=== PATIENT | female | born 1960 | race Caucasian/White ===

== ENCOUNTER 2020-01-24 10:30 | Emergency (ER) | payer BC, SELFPAY ==
--- NOTE | 2020-01-24 10:37 | ED.URI ---
HPI - URI/Sore Throat General Chief Complaint: Upper Respiratory Infection Stated Complaint: cough/sore throat Time Seen by Provider: 01/24/20 10:37 Source: patient and RN notes reviewed History of Present Illness HPI Narrative: Patient is a 59-year-old female who presents the urgent care with complaints of bilateral otalgia, sore throat, nonproductive cough, low-grade fever. Patient states she has been using Lizzie-[place] [id number] with some mild relief of the cough. States that symptoms started last . No other acute complaints. Denies any shortness of breath or wheezing. No acute distress noted. Patient aware of the plan of care. Related Data Home Medications Medication Instructions Recorded Confirmed atorvastatin 40 mg PO HS 10/29/19 01/24/20 conjugated estrogens [Premarin] 1 applic VAGINAL 2XW 10/29/19 01/24/20 meloxicam 7.5 mg PO DAILY 10/29/19 01/24/20 triamterene-hydrochlorothiazid 1 cap PO USEASDIRECTD 10/29/19 01/24/20 Allergies Allergy/AdvReac Type Severity Reaction Status Date / Time No Known Drug Allergies Allergy Verified 10/31/19 06:33 Review of Systems Review of Systems: Narrative: CONSTITUTIONAL: Reports of low-grade fevers and fatigue EYES: Denies visual changes, redness, or discharge. ENT: Reports of sore throat, ear pressure, postnasal drainage CARDIOVASCULAR: Denies chest pain, palpitations, or edema. RESPIRATORY: Reports of cough without dyspnea or wheezing GASTROINTESTINAL: Denies abdominal pain, nausea, vomiting, or diarrhea. GENITOURINARY: Denies dysuria or hematuria. SKIN: Denies rash or itching. MUSCULOSKELETAL: Denies back pain, joint pain, or myalgia. NEUROLOGIC: Denies headache, numbness, or weakness. All other systems reviewed are negative, except as documented in HPI. [facility] Past Medical History Medical History (Updated 01/24/20 @ 10:55 by MARITZA Crawford) Hyperlipidemia Social History Social History Gender identity (if verbalized by the patient): Female Comments At the time of my signature, I reviewed and agree with the nursing past medical, surgical, social, and family history. There is no relevant family history pertinent to the patient complaint. Exam Narrative: Exam Narrative: GENERAL: This is a well-nourished, well-developed patient, appears slightly fatigued HEAD: normocephalic, atraumatic. EYES: PERRL. Sclera clear/white. Vision is grossly intact. EARS: External ears normal, auditory canals clear and without drainage, TMs normal without perforation. Hearing grossly intact. NOSE: External nose normal with no obvious nasal discharge, mild bilateral erythemic nares with clear rhinorrhea. THROAT: Mucous membranes moist, posterior pharynx clear. Moderate postnasal drainage NECK: Neck supple, non-tender without lymphadenopathy CARDIOVASCULAR: Regular rate and rhythm without murmurs, gallops, or rubs. RESPIRATORY: Clear to auscultation. Breath sounds equal bilaterally. No wheezes, rales, or rhonchi. SKIN: warm, intact with no suspicious lesions or rash, good texture and turgor. NEURO: awake, alert, and oriented to person, place and time. There were no obvious focal neurologic abnormalities. EXTREMITIES: No clubbing, cyanosis, or edema. Course Vital Signs Vital signs: Vital Signs Temperature 99.4 F 01/24/20 10:44 Pulse Rate 113 H 01/24/20 10:44 Respiratory Rate 01/24/20 10:44 Blood Pressure 134/86 01/24/20 10:44 Pulse Oximetry 97 01/24/20 10:44 Temperature 99.4 F 01/24/20 10:44 Pulse Rate 113 H 01/24/20 10:44 Respiratory Rate 20 01/24/20 10:44 Blood Pressure 134/86 01/24/20 10:44 Pulse Oximetry 97 01/24/20 10:44 Reviewed MDM - URI/Sore Throat MDM Narrative Medical decision making narrative: Reviewed lab results with the patient. She is aware that influenza swab was positive for influenza A. Strep swab was negative. Educated her on strep culture we will
[2020-01-24 10:44] VITALS: BP 134/86; PULSE 113; RESP 20; TEMP 37.4; O2SAT 97
== END 2020-01-24 10:59 | disposition home or self-care (01) ==
PROVIDERS: Emergency Provider Nurse Practitioner Family
DX: J11.1 Influenza due to unidentified influenza virus with other respiratory manifestations (principal); E78.5 Hyperlipidemia, unspecified
CPT/HCPCS: 87081; 87804; 87880; 99213; G0463

== ENCOUNTER 2020-10-05 13:00 | Outpatient (RCR) | payer BC, SELFPAY ==
--- NOTE | 2020-09-14 10:23 | PTOPEVAL ---
PHYSICAL THERAPY EVALUATION AND PLAN OF CARE 09-14-2020 Thank you for referring Veronica [facility] to [facility], for the diagnosis of chronic L shoulder pain. She is scheduled to be seen for therapy? 2 x/week for 3 weeks. Please review, sign, date and return this plan of care CASSIDY. I agree with and certify that the following plan of care is medically necessary. Referring Physician Date Attending Provider: Gely Lee MD *PT Outpatient Evaluation Document 09/14/20 09:05 JUAN CARLOS (Rec: 09/14/20 10:22 JUAN CARLOS [id number]) Outpatient Past Medical History Past Medical History Source of Past Medical History Recalled from Previous Visit, Confirmed with Patient/Family Neurological History Hx Neurological Disorders No Significant History Cardiovascular History Hx Hypercholesterolemia Yes: meds control Respiratory History Hx Respiratory Disorders No Significant History Gastrointestinal History Hx Gastroesophageal Reflux Disease Yes: OCCAS REFLUX Genitourinary History Hx Genitourinary Disorders No Significant History Musculoskeletal History Hx Arthritis Yes: B thumb arthritis Hx Other Musculoskeletal Disorders Yes: chronic L shoulder pain; Hematological History Hx Hematological Disorders No Significant History Endocrine History Hx Endocrine Disorders No Significant History HEENT History Hx Meniere's Syndrome Yes Integumentary History Hx Skin Disorders No Significant History Reproductive History Hx Section Yes: x2 Hx Hysterectomy Yes Psychosocial History Hx Psychiatric Disorders No Significant History Pain History History of Any Previous or Ongoing No Significant History Instance of Pain Anesthesia History Hx Post-Op Nausea/Vomiting Yes Evaluation Information Problem Diagnosis chronic L shoulder pain Onset Nov 2019 Subjective Information gradual increase in pain, Query Text:As Reported By Patient/ started waking up with pain in Family shoulder; no trauma or injury to shoulder; Diagnostic Tests X-Rays For This Problem Yes: per pt, negative MRI For This Problem No Other Tests For This Problem No Previous Treatments Previous Treatments For This Problem no PT for shoulder Prior Level of Function Activity Level (Last 3 Months) 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
--- NOTE | 2020-10-05 13:44 | PTOPEVAL ---
PHYSICAL THERAPY RE-EVALUATION 10-05-2020 Refer to the clinical summary below for comparison of her status to the initial evaluation. Mrs. Snyder is to call you for a follow up appointment to discuss/assess her shoulder. If PT is to continue, please give her a new script to continue PT treatment for her shoulder. Thank you for referring Veronica Snyder to [facility].? Please review, sign, date and return this revaluation report CASSIDY. I agree with and certify that the following plan of care is medically necessary. Referring Physician Date Attending Provider: Gely Lee MD *PT Outpatient Re-Evaluation Document 10/05/20 13:05 JUAN CARLOS (Rec: 10/05/20 13:41 JUAN CARLOS [id number]) Subjective Information Leilani German reports: having issues Query Text:As Reported By Patient/ with sleeping, awaken 2-3 x/ Family night due to pain and cannot get comfortable with shoulder to sleep; not able to reach to back to hook/unhook bra; feel like shoulder is a little stronger and moving more, but still painful down arm and sleeping problems. called her dr and left a message to set up appointment for follow up. Pain Assessment Timing of Pain Assessment Timing of Pain Assessment Assessment Pain Scale Pain Scale Used Numeric (1 - 10) Self Report Pain Assessment Left Shoulder(s) Reported Pain Level 4 Pain Frequency Acute Other Pain Description lateral humerus and anterior GH joint Lowest Pain Intensity 4 Greatest Pain Intensity 7 Pain Aggravating Factors Exercise/Activity Other Pain Aggravating Factors cannot get comfortable for sleeping and awaken from sleep due pain;end day Pain Behaviors Anxious,Grimacing,Guarding Pain Score Pain Score 4: Self Report Interventions Used Interventions Used By Clinicians Exercise Pain Relief Interventions Used By Heat,Inactivity/Rest, Patient Medication Other Alleviating Interventions aleve, self massager for neck and upper back; Upper Extremity Range of Motion General Upper Extremity Range of Motion Gross Upper Extremity Range of Motion active L shoulder in standing: Comments flexion and abduction 155' without pain; ER- reach to back of head without an increase in pain; IR- reach behind back, palm to waist- increase pain Upper Extrem
--- NOTE | 2020-11-25 09:03 | PCPTNOTE ---
PHYSICAL THERAPY DISCHARGE 11-25-2020 Attending Provider: Gely Lee MD Patient:Veronica Snyder Date of :1960 Mrs. Snyder has not returned for any further treatments since the reevaluation on 10/05/2020, therefore she will be discharged at this time. Refer to the reevaluation for her status at the last session. Thank you for referring this patient to [facility]. Please review, sign, date and return this discharge summary CASSIDY. I have been updated about the patient's current status and I agree with discharge from the above service at this time. Referring Physician Date
== END 2020-11-25 11:56 | disposition home or self-care (01) ==
LOC: ANHPT 13:00
PROVIDERS: PCP Internal Medicine; Visit Provider Internal Medicine
DX: M25.512 Pain in left shoulder (principal); S46.212D Strain of muscle, fascia and tendon of other parts of biceps, left arm, subsequent encounter; G89.29 Other chronic pain
CPT/HCPCS: 97014; 97110; 97140; 97161; G0283

== ENCOUNTER 2025-02-04 00:26 | Day surgery (SDC) | payer BC, SELFPAY ==
[2024-10-28 10:27] VITALS: BMI 24.5
--- OUTSIDE RECORDS SUMMARY | 2025-02-04 00:29 | XMS_ITS | Encounter Summary ---
Author Organization [facility] Address [address] [place] [address] Care Team Providers Care Container Filler Name Role Phone Unavailable Primary Care Provider Unavailabl e Encounter Details Date Type Department Care Team (Late st Contact Info) Description 08/06/2018 Lab Requisition [facility] Care DermPath Lab [address] [facility] [address] Tahmina Stone MD [address] [facility] [address] [place] [address] Social History Tobacco Use Types Packs/Day Years Used Date Smoking Tobacco: Never Assessed Sex and Gender Information Value Date Recorded Sex Assigned at Not on file Gender Identity Not on file Sexual Orientation Not on file documented as of this encounter Plan of Treatment Not on file documented as of this encounter Procedures Procedure Name Priority Date/Time Associated Diagnosis Comments DERMATOPATH TECHNICAL REPORT Routine 08/05/2018 12:00 AM CDT documented in this encounter Results * DERMATOPATH TECHNICAL REPORT (08/05/2018 12:00 AM CDT) Case Report Dermatopathology Report Case: [id number] Authorizing Provider: Tahmina Stone MD Collected: 08/05/2018 12:00 AM Pathologist: Amanda Saldivar MD Received: 08/06/2018 06:43 AM Specimen: Skin, right nasal sidewall 8 1:06 PM CDT DERMATOPATHOLOGY LABORATORY Addendum 1 At the request of the diagnosing physician, the technical component for MART-1/Melan A was performed by [facility] Dermatopathology Laboratory. 8 1:06 PM CDT DERMATOPATHOLOGY LABORATORY Addendum electronically signed by Amanda Saldivar MD on 08/08/2018 at 1:06 PM Clinical History Nevus vs BCC. Growing. Check margins. 8 1:06 PM CDT DERMATOPATHOLOGY LABORATORY Gross Description Specimen A: Received is one formalin filled container labeled with the patient's name and designated right nasal sidewall. The specimen consists of a shave measuring [id number]. The margin is inked green. Jar 0. [facility] Dermatopathology Laboratory performed the technical component only. 8 1:06 PM CDT DERMATOPATHOLOGY LABORATORY Embedded Images 1:06 PM CDT DERMATOPATHOLOGY LABORATORY DISCLAIMER An external and internal positive and negative controls are appropriate for the histochemical, immunohistochemical and immunofluorescence stain(s) in this case (if any), except where stated explicitly. The performance characteristics of the stain(s) cited in this report were developed and its performance characteristic determined by the Dermatopathology Laboratory at [facility]. These tests need not be, and therefore are not, approved by the [place] Food and Drug Administration. The tests are used for clinical purposes. 8 1:06 PM T DERMATOPATHOLOGY LABORATORY Pathology/Cytolog y TISSUE SPECIMEN FROM SKIN / Unknown 08/05/2018 08/06/2018 6:43 AM CDT Tahmina Stone MD LAB - PATHOLOGY/CYT OLOGY ORDERABLES DERMATOPATHOLOGY LABORATORY [facility] - Department of Dermatology [address] [place] [address] 5th Floor Lab [address] [phone] documented in this encounter Visit Diagnoses Not on filedocumented in this encounter
--- OUTSIDE RECORDS SUMMARY | 2025-02-04 00:29 | XMS_ITS | Referral Summary ---
Author Organization [facility] Address [address] [place] [address] Care Team Providers Care Rn Clinical Research Name Role Phone Gely Lee MD Primary Care Provider Allergies No known active allergies Medications Lactobacillus acidophilus 10 billion cell capsule Rx: Probiotic Capsule Active fluticasone propionate (FLONASE) 50 mcg/actuation nasal spray Administer 1 spray into each nostril daily Active coenzyme Q10 10 mg capsule Take 1 capsule (10 mg total) by mouth daily Active magnesium gluconate 200 mg tabletIndication s:hypomagnesemia Take 2 tablets (400 mg total) by mouth daily Active vitamins F3-P0-Z0-B12-pro tease 2.5 mg-2.5 mg- 5 mg-100 mcg tablet Take 1 tablet by mouth daily Active vit D3-vit J-zrfcngbjf-trty [phone] wzyu-clz-qf-mg tablet Take 1 tablet by mouth daily Active multivitamin-Ca- iron-minerals 18-0.4 mg tablet Take 1 tablet by mouth daily Active zinc gluconate 100 mg tablet Take 1 tablet by mouth daily Active triamterene-hydr oCHLOROthiazide 37.5-25 mg per tablet/capsule Take 1 tablet/capsule by mouth daily 90 capsule 1 4 Active atorvastatin (LIPITOR) 40 mg tablet TAKE 1 TABLET BY MOUTH EVERY DAY 90 tablet 4 4 Active meloxicam (MOBIC) 15 mg tablet TAKE 1 TABLET (15 MG TOTAL) BY MOUTH DAILY. 100 tablet 1 4 Active Premarin vaginal creamIndications :Vaginal atrophy INSERT 2G PER VAGINA- TWICE WEEKLY 30 g 6 4 Active Active Problems Problem Noted Date Diagnosed Date Tear of left supraspinatus tendon 10/24/2024 Left shoulder pain 10/24/2024 s/p left shoulder diagnostic arthroscopy with biceps tenotomy and debridement on 05/30/2021 06/14/2021 Vestibular migraine 05/18/2021 Rotator cuff impingement syndrome of left should er 11/09/2020 Hyperlipidemia 01/28/2020 Menopausal symptoms 03/01/2018 Gastroesophageal reflux disease without esophagi tis 11/27/2017 Meniere's disease 11/27/2017 Osteoarthritis of thumb 11/27/2017 Dysfunction of eustachian tube 09/02/2014 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 11/23/2010 Resolved Problems Problem Noted Date Diagnosed Date Resolved Date Vestibular migraine 02/10/2021 02/09/20 22 Excessive cerumen in ear canal 10/26/2016 02/08/2022 Sinusitis 02/16/2014 02/08/2022 Facial pain 02/16/2014 02/08/2022 Impacted cerumen 11/23/2010 02/08/2022 Immunizations Immunization Administration Dates Next Due Influenza, Quadrivalent, Spl it, Preservative Free, Intramuscular 08/12/2020 Influenza, Trivalent, Split, Preservative Free, Intradermal 11/29/2012 Influenza, Unspecified 02/21/2023(Deferr ed: Patient Refused),08/19/2019(Deferred: Patient Refused),08/19/2018(Deferred: Patient Refused) Tdap 02/26/2024,02/07/2013 ZOSTER Recombinant 12/18/2020,11/04/2020, 020 Social History Tobacco Use Types Packs/Day Years Used Date Smoking Tobacco: Never Smokeless Tobacco: Never Tobacco Cessation:Counseling Given: Not Answered Alcohol Use Standard Drinks/Week Comments Yes 6 (1 standard drink = 0.6 oz pur e alcohol) Usually have wine with dinner AUDIT-C Answer Date Recorded Q1: How often do you have a drink containing alcohol? 4 or more times a week 05/18/2021 Q2: How many drinks containi ng alcohol do you have on a typical day when you are drinking? 1 or 2 Q3: How often do you have si x or more drinks on one occasion? Never 05/18/2021 PHQ-2 Answer Date Recorded PHQ-2 Total Score (If total score is 3 or more points, staff should administer the PHQ-9) 0 02/26/2024 Comments No Sex and Gender Information Value Date Recorded Sex Assigned at Not on file Legal Sex Female 12:20 AM 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 Gender Identity Female 12/12/2018 9:11 AM 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 Sexual Orientation Straight 08/15/2019 8: 29 AM CDT Last Filed Vital Signs Vital Sign Reading Time Taken Comments Blood Pressure 122/70 06/03/2024 9:08 AM CDT Pulse 95 06/03/2024 9:08 AM CDT Temperature 37 C (98.6 F) 06/03/2024 9:08 AM CDT Respiratory Rate 18 06/03/2024 9:08 AM CDT Oxygen Saturation 97% 06/03/2024 9:08 AM CDT Inhaled Oxygen Concentration - - Weight 59 kg (130 lb) 10/24/2024 9:37 AM 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 Height 154.9 cm (5' 1 ) 10/24/2024 9:37 AM 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 Body Mass Index 24.56 10/24/2024 9:37 AM 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 Plan of Treatment Not on file Procedures Procedure Name Priority Date/Time Associated Diagnosis Comments SCREENING MAMMOGRAM BILATERAL W JEFF Schedule Routine, Read Routine (OP Routine) 07/31/2024 8:50 AM CDT Encounter for screening mammogram for malignant neoplasm of breast THINPREP PAP WITH HPV Routine 04/14/2021 2:09 PM CDT Well woman exam COLONOSCOPY Routine 10/31/2019 from Last 3 Months or Most Recently Relevant to Health Maintenance Results * Screening Mammogram Bilateral W Jeff (07/31/2024 8:50 AM CDT) Anatomical Region Laterality Modality Breast Bilateral Mammography Impressions 07/31/2024 9:23 AM CDT BI-RADS ATLAS category (overall): 1 - Negative There is no mammographic evidence of malignancy. A 1 year screening mammogram is recommended. The patient has been or will be contacted. We recommend annual screening mammography for women at average risk of breast cancer beginning at age 40, based on guidelines of the [employer] [employer] (ACR Practice Parameter for the Performance of Screening and Diagnostic Mammography) and [place] [employer]. For women with and elevated risk of breast cancer, please refer to the ACR Practice Parameter for specific screening recommendations. The patient will be entered into a reminder system with a target due date of 1 year for her next screening exam. Narrative 07/31/2024 9:23 AM CDT Screening Mammogram Bilateral W Jeff: 07/31/24 The study was acquired using full field digital technology and interpreted from soft copy. 2D digital mammographic views, as well as 3D digital tomosynthesis were performed in the CC and MLO projections. CLINICAL: Encounter for screening mammogram for malignant neoplasm of breast. No relevant medical history has been documented for this patient. History of breast cancer in Neg Hx. COMPARISONS: 07/26/2023 Screening Mammogram Bilateral W Jeff 07/19/2022 Screening Mammogram Bilateral W Jeff 07/18/2021 Screening Mammogram Bilateral W Jeff 05/25/2020 Screening Mammogram Bilateral W Jeff 04/11/2019 Screening Mammogram Bilateral W Jeff BREAST TISSUE: The breasts are almost entirely fatty. FINDINGS: There is no new suspicious finding in either breast on mammogram. Saeed Paz MD IMG MAMMO PROCEDURES Fi nal Result * ThinPrep Pap with HPV (04/14/2021 2:09 PM CDT) Pap test 04/14/2021 2:09 PM CDT 04/15/2021 10:23 AM CDT Narrative 04/20/2021 12:57 PM CDT [facility] Department of Pathology [address] [place] [id number] Final Report with Addendum Patient Name: VERONICA SNYDER Address: [address] [place] [address] Gender: F : 1960 (Age: 61) Service: Laboratory Location: Lab [facility] #: [id number] Patient Type: Ref Lab Taken: 04/14/2021 Received: 04/15/2021 Accessioned:: 04/19/2021 Reported: 04/20/2021 Physician(s): Saeed Paz M.D. [facility] Diagnosis: Source of Specimen: Screening ThinPrep Imaged Pap w/HPV Specimen Adequacy: - Specimen satisfactory for interpretation; indeterminate endocervical component due to marked atrophy General Category: - Negative for intraepithelial lesion or malignancy DENZEL Torres(ASCP) Report Electronically Reviewed and Signed Out By DENZEL Torres(ASCP) 04/20/2021 12:57:28 Addenda: HPV Test Interpretation NEGATIVE for types 16, 18, 31, 33, 35, 39, 45, 51, 52, 56, 58, 59, 66 and 68. Test performed utilizing Gen-Probe Aptima assay. DENZEL Nunez(ASCP) Report Electronically Reviewed and Signed Out By DENZEL Nunez(ASCP) 04/19/2021 13:44:50 Specimen(s) Received: A: Screening ThinPrep Imaged Pap w/HPV Clinical History: Menstrual History: Post-menopausal Hysterectomy The Pap test is a screening test used to aid in the detection of cervical cancer and its precursors. It should not be the sole means by which malignant and premalignant lesions are diagnosed. Both false negative and false positive results may occur. It also has poor sensitivity for the detection of endometrial lesions and should not be used to evaluate suspected endometrial abnormalities. For these reasons it is most important to obtain Pap tests at regular intervals. The performance characteristics of some immunohistochemical stains, fluorescence in-situ hybridization tests and immunophenotyping by flow cytometry cited in this report (if any) were determined by the Surgical Pathology Department at [facility] as part of an ongoing business quality assurance analyst program and in compliance with federally mandated regulations drawn from the Clinical Laboratory Improvement Act of 1988 (CLIA '88). Some of these tests rely on the use of analyte specific reagents and are subject to specific labeling requirements by the [place] Food and Drug Administration. Such diagnostic tests may only be performed in a facility that is certified by the Department of Health and Human Services as a high complexity laboratory under CLIA '88. The FDA has determined that such clearance or approval is not necessary. This test is used for clinical purposes. It should not be regarded as investigational or for research. Nevertheless, federal rules concerning the medical use of analyte specific reagents require that the following disclaimer be attached to the report: This test was developed and its performance characteristics determined by the Surgical Pathology Department [facility]. It has not been cleared or approved by the U. S. Food and Drug Administration. Saeed Paz MD LAB CYTOLOGY ORDERABLES Final Result * Colonoscopy (10/31/2019) Anatomical Region Laterality Modality Other 10/31/2019 Historical Provider ENDOSCOPY PROCEDURES Marlys l Result from Last 3 Months or Most Recently Relevant to Health Maintenance [place] [facility] Care Teams Rn Clinical Research Relationship Specialty Start Date End Date Gely Lee MD PCP - General 01/23/19
--- OUTSIDE RECORDS SUMMARY | 2025-02-04 00:29 | XMS_ITS | Clinical Summary ---
Author Organization [facility] Address [address] [place] [address] Care Team Providers Care Chief Of Staff Name Role Phone Gely Lee MD Primary [...] mg total) by mouth daily Active vitamins K4-R1-C0-B12-pro tease 2.5 mg-2.5 mg- 5 mg-100 mcg tablet Take 1 tablet by mouth daily Active vit D3-vit W-lwscycypg-qumq [phone] bmhm-nej-di-mg tablet Take 1 tablet by mouth daily [...] Refused) Tdap 02/26/2024,02/07/2013 ZOSTER Recombinant 12/18/2020,11/04/2020, 020 Surgical History Surgery Date Site/Laterality Comments TOTAL ABDOMINAL HYSTERECTOMY 11/19/2008 - 11/18/2009 WITH BSO. FIBROIDS. PATH BENIGN. Dr Lee SECTION 11/19/1988 - 11/18/1989 SECTION 11/19/1992 - 11/18/1993 SHOULDER SURGERY 05/30/2021 Left Lt shoulder scope Medical History Medical History Date Comments Arthritis Tinnitus Dizziness Hypercholesteremia Vestibular migraine Vestibular migraine 05/18/2021 Family History Medical History Relation Name Comments Heart disease Brother 1 Ramon Sexton Hypertension Brother 1 Ramon Sexton Hypertension Brother 2 Yayo Rinaldiin Hypertension Brother 3 Aaron Sexton Hypertension Brother 4 Margarito Sexton Developmental delay Daughter Denisa Snyder Learning disabilities Daughter Denisa Snyder Mental illness Daughter Denisa Snyder Heart attack Father Ry Sexton Heart disease Father Ry Sexton Prostate cancer Father Ry Sexton Heart disease Mother Frida Sexton Hypertension Mother Frida Sexton Stroke Mother Frida Sexton Breast cancer Neg Hx Ovarian cancer Neg Hx Relation Name Status Comments Brother 1 Ramon Carlie Brother 2 Yayo Carlie Brother 3 Aaron Carlie Brother 4 Margarito Carlie Daughter Denisa Snyder Father Ry Sexton Mother Frida Sexton Social History Tobacco Use Types Packs/Day Years [...] on file Legal Sex Female 12:20 AM DIRECTOR OF PSYCHIATRY Gender Identity Female 12/12/2018 9:11 AM DIRECTOR OF PSYCHIATRY Sexual Orientation Straight 08/15/2019 8: 29 AM CDT Obstetrics History Para Term AB IAB SAB Ectopic Multiple Livin g Live Births 3 2 2 1 1 Date Outcome GA Total Labor Labor/2nd/3rd Weight Sex Type Anes PTL Stephenie A1 A5 Name Clin Term Term SAB Comments Last Filed Vital Signs Vital Sign Reading Time Taken Comments Blood Pressure 122/70 06/03/2024 9:08 AM CDT Pulse 95 06/03/2024 9:08 AM CDT Temperature 37 C (98.6 F) 06/03/2024 9:08 AM CDT Respiratory Rate 18 06/03/2024 9:08 AM CDT Oxygen Saturation 97% 06/03/2024 9:08 AM CDT Inhaled Oxygen Concentration - - Weight 59 kg (130 lb) 10/24/2024 9:37 AM DIRECTOR OF PSYCHIATRY Height 154.9 cm (5' 1 ) 10/24/2024 9:37 AM DIRECTOR OF PSYCHIATRY Body Mass Index 24.56 10/24/2024 9:37 AM DIRECTOR OF PSYCHIATRY Plan of Treatment Health Maintenance Due Date Last Done Comments Hepatitis C Screening 1961 Hepatitis B Screening 1979 Influenza Vaccine (#1) 2024 08/12/2020, 2012 Colon Cancer Screening-Colonoscopy 10/31/2024 10/31/2019 Depression Screening 02/25/2025 02/26/2024, 02/21/2023, 02/15/2022, Additional history exists Regular Well Visit/Exam 18-64 04/23/2025 04/23/2024, 02/26/2024, 04/20/2023, Additional history exists Breast Cancer Screening-Mammogram 07/31/2025 07/31/2024, 07/26/2023, 07/19/2022, Additional history exists DTaP/Tdap/Td Vaccine (3 - Td or Tdap) 02/25/2034 02/26/2024, 02/07/2013 Colon Cancer Screening-CT Colonography Discontinued 10/31/2019 Colon Cancer Screening-DNA Stool Discontinued 10/31/2019 Colon Cancer Screening-FIT Discontinued 10/31/2019 Colon Cancer Screening-Sigmoidoscopy Discontinued 10/31/2019 Zoster Vaccine Completed 12/18/2020, 10/19, 08/12/2020 Cervical Cancer Screening Discontinued 2020, 02/18/2016, 01/08/2015, Additional history exists Pneumococcal vaccine <65 Aged Out No longer eligible based on patient's age to complete this topic Procedures Procedure Name Priority Date/Time Associated Diagnosis [...] age 40, based on guidelines of the [employer] (ACR Practice Parameter for the Performance of Screening and Diagnostic Mammography) and [employer]. For women [...] 12:57 PM CDT [facility] Department of Pathology [address] [place] [id number] Final Report with Addendum Patient Name: VERONICA SNYDER Address: [address] [place] [address] Gender: F : 1960 (Age: 61) Service: Laboratory Location: Lab [facility] #: [id number] Patient Type: Ref Lab Taken: 04/14/2021 Received: 04/15/2021 Accessioned:: 04/19/2021 Reported: 04/20/2021 Physician(s): Saeed Paz M.D. [facility] Diagnosis: Source of Specimen: Screening ThinPrep Imaged [...] determined by the Surgical Pathology Department at [facility] as part of an ongoing quality lab technician program and in compliance with federally mandated [...] characteristics determined by the Surgical Pathology Department [facility]. It has not been cleared or approved by the U. S. Food and Drug Administration. Saeed Paz MD LAB CYTOLOGY ORDERABLES Final Result * Colonoscopy (10/31/2019) Anatomical Region Laterality Modality Other 10/31/2019 Historical Provider ENDOSCOPY PROCEDURES Marlys l Result from Last 3 Months or Most Recently Relevant to Health Maintenance Insurance [employer] Care Teams Chief Of Staff Relationship Specialty Start Date End Date Gely Lee MD PCP - General 01/23/19
--- OUTSIDE RECORDS SUMMARY | 2025-02-04 00:30 | XMS_ITS | Clinical Summary ---
Author Organization [facility] Address [address] 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 This disclosure is being madepursuant to the Care Everywhere program and may not contain all information available regarding this patient. Last updated 18.[facility] [employer] Social History Tobacco Use Types Packs/Day Years Used Date Smoking Tobacco: Never Assessed Sex and Gender Information Value Date Recorded Sex Assigned at Not on file Gender Identity Not on file Sexual Orientation Not on file Plan of Treatment Health Maintenance Due Date Last Done Comments COLOGUARD (AGES 45-75) - COL ON CA SCREENING 1961 COLON MONITORING 1961 COLONOSCOPY - COLON CA SCREENING 1961 CT COLONOGRAPHY - COLON CA SCREENING 1961 Colorectal Cancer Screening 1961 FIT - COLON CA SCREENING 1961 FLEX SIG - COLON CA SCREENING 1961 LIPID TESTING 1961 MAMMOGRAM 1961 PAP SMEAR 1961 HIV SCREENING 02/14/1976 HEPATITIS C SCREENING 02/09/1979 DTAP/TDAP/TD VACCINES (1 - Tdap) 02/14/1980 PNEUMOCOCCAL VACCINE 50+ (1 of 1 - PCV) 2011 ZOSTER VACCINE (1 of 2) 2011 COVID-19 VACCINE ( - 2023-2 5 season) 2024 INFLUENZA VACCINE (#1) 2024 DEPRESSION SCREENING 11/19/2024 Respiratory Syncytial Virus (RSV) Vaccine Pt: or over 60 yrs (1 - 1-dose 75+ series) 02/14/2036 HEPATITIS B VACCINE Aged Out No longe r eligible based on patient's age to complete this topic HIB VACCINE Aged Out No longer eligi ble based on patient's age to complete this topic HPV VACCINE Aged Out No longer eligi ble based on patient's age to complete this topic MENINGOCOCCAL (Group B) VACC INE SHARED DECISION-MAKING Aged Out No longer eligibl e based on patient's age to complete this topic MENINGOCOCCAL GROUPS A/C/Y/W VACCINE Aged Out No longer eligible b ased on patient's age to complete this topic
[2025-02-04 06:12] VITALS: BP 121/79; PULSE 87; RESP 16; TEMP 35.9; O2SAT 100; BMI 24.3
[2025-02-04] MEDS: LACTATED RINGERS 1,000 ML 150 ML IV CONT (06:21)
--- NOTE | 2025-02-04 07:19 | WPDANESEPPF ---
Anes - Initial Pre Proc Eval Procedure: Operation Date: 02/04/25 07:30 Proposed Procedures p Colonoscopy - Emir Adame MD Date/Time: 02/04/25 07:19 Surgeon: Emir Adame MD Pre Op Diagnosis: Personal Hx. colon polyps, Fam. Hx. Colon polyps Patient Data Age: 64 Gender: F Height: 1.55 m Weight: 58.4 kg Last Vital Signs Temp 96.7 F L 02/04/25 06:12 Pulse 87 02/04/25 06:12 Resp 16 02/04/25 06:12 BP 121/79 02/04/25 06:12 Pulse Ox 100 02/04/25 06:12 O2 Del Method Room Air 02/04/25 06:12 Allergies Allergy/AdvReac Type Severity Reaction Status Date / Time No Known Drug Allergies Allergy Other Verified 02/04/25 06:11 Home Medications ?Medication ?Instructions ?Recorded ?Confirmed ?Type atorvastatin 40 mg tablet 40 mg PO HS 10/29/19 10/28/24 History conjugated estrogens 0.625 mg/gram 1 applic vaginal 2XW 10/29/19 02/04/25 History vaginal cream (Premarin) meloxicam 7.5 mg tablet 7.5 mg PO DAILY 10/29/19 02/04/25 History triamterene 37.5 1 cap PO USEASDIRECTD 10/29/19 10/28/24 History mg-hydrochlorothiazide 25 mg capsule sodium,potassium,mag sulfates 17.5 See Rx Instructions PO .COMPLEX 06/30/24 10/28/24 Rx gram-3.13 gram-1.6 gram oral soln #354 mL (Suprep Bowel Prep Kit) Results Review: All pre-operative results and documents have been reviewed as part of the pre-operative evaluation. [facility] Past Medical History Medical History (Updated 01/25/20 @ 00:00 by Britt Alfaro) Hyperlipidemia Social History Social History Smoking status: Never smoker Alcohol intake: current Drinks per week: 14 Alcohol use details: wine Substance use type: does not use Living arrangements: with family Gender identity (if verbalized by the patient): Female Spiritual care concerns: No Anes - Eval Final PreProcedure Day of Procedure 02/04/25 07:19 Patient weight: normal Heart: regular rate and rhythm Lungs: clear to auscultation Neurological: alert and oriented Last oral intake: >/= 8 hours Emergent: no Anesthetic plan: proceed Results Review: All pre-operative results and documents have been reviewed as part of the pre-operative evaluation. Informed Consent: The patient's anesthetic plan and its attendant risks and benefits were discussed with the patient/family/POA. Questions were solicited and answers provided to the satisfaction of the patient/family/POA.
--- NOTE | 2025-02-04 07:27 | PM.HPGS ---
History of Present Illness History of Present Illness Consent: Risks, benefits, and alternatives have been discussed and questions answered. Patient agrees to proceed with procedure. Chief complaint: Personal Hx. colon polyps, Fam. Hx. Colon polyps Narrative: Veronica Snyder is a 64 year old female with colon polyp in 2019 Review of Systems Review of Systems: All systems reviewed & are unremarkable except as noted in HPI and below PMFSH Past Medical History Medical History (Updated 02/04/25 @ 07:27 by Emir Adame MD) Colon polyp Hyperlipidemia Social History Social History Smoking status: Never smoker Alcohol intake: current Drinks per week: 14 Alcohol use details: wine Substance use type: does not use Living arrangements: with family Gender identity (if verbalized by the patient): Female Spiritual care concerns: No Meds Home Medications and Allergies Home Medications ?Medication ?Instructions ?Recorded ?Confirmed ?Type atorvastatin 40 mg tablet 40 mg PO HS 10/29/19 10/28/24 History conjugated estrogens 0.625 mg/gram 1 applic vaginal 2XW 10/29/19 02/04/25 History vaginal cream (Premarin) meloxicam 7.5 mg tablet 7.5 mg PO DAILY 10/29/19 02/04/25 History triamterene 37.5 1 cap PO USEASDIRECTD 10/29/19 10/28/24 History mg-hydrochlorothiazide 25 mg capsule sodium,potassium,mag sulfates 17.5 See Rx Instructions PO .COMPLEX 06/30/24 10/28/24 Rx gram-3.13 gram-1.6 gram oral soln #354 mL (Suprep Bowel Prep Kit) Allergies Allergy/AdvReac Type Severity Reaction Status Date / Time No Known Drug Allergies Allergy Other Verified 02/04/25 06:11 Vital Signs Vital Signs - 24 hr 02/04/25 06:12 Temperature 96.7 F L Pulse Rate 87 Respiratory Rate 16 Blood Pressure 121/79 Pulse Oximetry 100 Oxygen Delivery Room Air Exam Const: General: comfortable and no acute distress HENMT: Face/Nose/Sinus: Normal nares present Eyes: General: appearance normal, both eyes and all related structures Neck: Neck: no JVD Resp: Auscultation: clear to auscultation bilaterally Cardio: Rate: regular rate Rhythm: regular rhythm GI: Inspection: non-distended GI Palp: Yes Soft to palpation Skin: General skin exam: normal color Neuro: General: gait normal Speech: normal speech Extrem: General: normal to inspection Psych: Mental Status: mental status grossly normal Assessment and Plan Assessment and plan (1) Colon polyp: Code(s): K63.5 - Polyp of colon Status: Acute Assessment and Plan: colonoscopy
[2025-02-04 07:43] VITALS: BP 118/70; PULSE 78; RESP 20; O2SAT 98
[2025-02-04 07:53] VITALS: BP 116/58; PULSE 82; RESP 17; O2SAT 100
[2025-02-04 08:03] VITALS: BP 105/66; PULSE 70; RESP 20; O2SAT 100
== END 2025-02-04 08:14 | disposition home or self-care (01) ==
PROVIDERS: PCP Internal Medicine; Referring Provider Internal Medicine; Visit Provider Internal Medicine Gastroenterology
PROC: 0DJD8ZZ Inspection of Lower Intestinal Tract, Via Natural or Artificial Opening Endoscopic (ICD-10-PCS; CPT 45378; principal; 2025-02-04 07:30)
DX: Z12.11 Encounter for screening for malignant neoplasm of colon (principal); K64.8 Other hemorrhoids; E78.2 Mixed hyperlipidemia; Z86.0100 Personal history of colon polyps, unspecified; Z83.719 Family history of colon polyps, unspecified
CPT/HCPCS: 45378; J2003; J2704; J7120